=== PATIENT | male | born 1985 | race Caucasian/White ===

== ENCOUNTER 2016-09-22 18:44 | Emergency (ER) | payer OTHER ==
[~2016-09-22] VITALS: Ht 180.3 cm; Wt 83.6 kg
[2016-09-22 18:46] VITALS: TEMP 99.4
[2016-09-22] MEDS ORDERED: MAG-OX 400400 MG/TAB PO (18:49)
[2016-09-22 19:18] LABS: BASO % 0.4 % (0.0-2.0); EOS % 0.1 % (0-4.0); GRAN # 9.1 (1.4-6.5); GRAN % 91.8 % (42.2-75.2); HEMATOCRIT 47.4 % (42.0-52.0); HEMOGLOBIN 16.3 g/dl (13.5-18.0); LYMPH # 0.3 (1.2-3.4); LYMPH % 3.4 % (20.0-51.0); MEAN CELL VOLUME 85 fl (80.0-100.0); MEAN CORPUSCULAR HEMOGLOBIN 29 pg (27.0-31.0); MEAN CORPUSCULAR HGB CONC 34 g/dl (33.0-37.0); MONO # 0.4 (0.1-0.6); MONO % 3.8 % (1.7-9.3); PLATELET COUNT 184 K/mm3 (130-400); REDCELL DISTRIBUTION WIDTH-CV 12.7 % (11.5-14.5); WHITE BLOOD COUNT 9.9 K/mm3 (4.8-10.8)
[2016-09-22 19:30] LABS: ADJUSTED CALCIUM 8.9 mg/dL (8.4-10.2); ALBUMIN 4.8 gm/dL (3.5-5.0); BILIRUBIN,TOTAL 1.1 mg/dL (0.0-1.0); CALCIUM 9.5 mg/dL (8.4-10.2); CREATININE, serum 0.85 mg/dL (0.66-1.25); POTASSIUM 3.8 mmol/L (3.4-5.0); TOTAL PROTEIN 7.9 gm/dL (6.4-8.2)
[2016-09-22 19:54] LABS: INFLUENZA B NEGATIVE
[2016-09-22] MEDS ORDERED: ZOFRAN ODT8 MG PO (20:30)
[2016-09-22 20:53] VITALS: BP 126/80; PULSE 88
== END 2016-09-22 20:50 | disposition home or self-care (01) ==
LOC: COL.ER 18:44
PROVIDERS: Family Medicine
DX: E86.0 Dehydration (principal); K52.9 Noninfective gastroenteritis and colitis, unspecified; R00.0 Tachycardia, unspecified
CPT/HCPCS: J2550; J7030